=== PATIENT | female | born 1985 | race Caucasian/White ===

== ENCOUNTER 2016-09-07 15:03 | Emergency (ER) | payer SELFPAY ==
--- NOTE | ~2016-09-07 | CT4 ---
[facility] A Service of [facility] RADIOLOGY TEXT RESULTS PATIENT: MIREYA ADORNO LOCATION: CFTX : 87 UNIT #: [id number] AGE: [address]: Nery Peguero APRN SEX: F ORDER DR: [id number] [facility] [address] [place], [place] [address] [id number] E MR#: [id number] Acc #: [id number] NAME: MIREYA ADORNO : 1985 SEX: F STUDY DATE/TIME: 09/07/2016 18:42 UNIT: CFTX ROOM: STUDY DESCRIPTION: CT Abd and Pelv Wo Cont Attending Physician: Nery Peguero A.P.R.N. Referring Physician: Gilbert Bro M.D. Ordering Physician: Karl Moody M.D. Primary Care Physician: No Primary Care Physician MEDICAL IMAGING REPORT This report is preliminary unless electronic signature is present EXAM CT abdomen and pelvis without contrast. HISTORY Low abdomen pain and vaginal pain and dysuria today. TECHNIQUE This CT exam was performed with one or more of the following radiation dose reduction techniques: automatic exposure control, adjustment of mA and/or kV according to patient size, and iterative reconstruction. FINDINGS CT abdomen and pelvis was performed without contrast. CT ABDOMEN. Moderate left hydronephrosis and mild left ureteral dilatation and mild left perinephric stranding. Splenomegaly measuring 17.3 cm in length. The liver, gallbladder, right kidney, and adrenal glands are normal. No bowel dilatation. No ascites. Normal caliber abdominal aorta. Multiple subcentimeter aortocaval lymph nodes. CT PELVIS. There is a 3 mm obstructing stone at the left ureterovesical junction with [id number] left ureteral dilatation. No pelvic free fluid. The uterus and adnexa are unremarkable. Normal appendix. IMPRESSION 1. 3 mm obstructing stone at the left ureterovesical junction causing moderate left hydronephrosis and [id number]-[id number] left ureteral dilatation. 2. No acute findings in the remainder of the abdomen or pelvis. [facility] A Service of [facility] RADIOLOGY TEXT RESULTS PATIENT: MIREYA ADORNO LOCATION: [facility] #: [id number] : [birth year] UNIT #: [id number] AGE: [address]: Nery Peguero APRN SEX: F ORDER DR: 3. Splenomegaly measuring 17.3 cm in length. 4. Normal appendix. Dictated by... Yordan Pacheco M.D. THIS IS AN ELECTRONICALLY VERIFIED REPORT Yordan Pacheco M.D. at 09/07/2016 10:47 PM TERRY/staci TD: 09/07/2016 21:21 JOB #: [id number] MEDICAL IMAGING REPORT Page 1 of 1 COPY
[2016-09-07 16:36] LABS: URINE SOURCE CLEAN CATCH
[2016-09-07 16:44] LABS: URINE APPEARANCE TURBID; URINE BLOOD 3+ (NEG); URINE COLOR RED; URINE GLUCOSE NEG (NEG); URINE LEUKOCYTE ESTERASE 2+ (NEG); URINE NITRATE POS (NEG); URINE PROTEIN 1+ (NEG); URINE SPECIFIC GRAVITY 1.022 (1.003-1.035)
[2016-09-07 16:48] LABS: CULTURE INDICATED? YES; U HYALINE CASTS AUWI 0-2 /[LPF]; URBCS1 AUWI 50-100 /[HPF] (0-2); URINE BACTERIA AUWI 1+ (NEGATIVE); URINE SQUAMOUS EPITHELIAL CELL OCC /[HPF]
[2016-09-07 16:56] LABS: URINE BILIRUBIN NEG (NEG); URINE KETONE NEG (NEG)
[2016-09-07 17:40] LABS: BASOPHIL% 0.3 % (0-2.5); EOSINOPHIL# 0.1 X10e3 (0-0.7); EOSINOPHIL% 0.8 % (0.0-7.0); HEMATOCRIT 40.1 % (35.0-45.0); HEMOGLOBIN 13.7 gm/dL (12.0-16.0); LYMPHOCYTE# 1.6 X10e3 (1.0-3.5); LYMPHOCYTE% 20.3 % (17.0-45.0); MEAN CELL VOLUME 92.6 FL (83-96); MEAN CORPUSCULAR HEMOGLOBIN 31.6 PG (28-34); MEAN CORPUSCULAR HGB CONC 34.2 g/dL (30-36); MEAN PLATELET VOLUME 11.4 FL (6.5-11.5); MONOCYTE# 0.3 X10e3 (0-1.0); MONOCYTE% 4.4 % (3.0-12.0); NEUTROPHIL# 5.7 X10e3 (1.5-7.1); NEUTROPHIL% 74.2 % (40-75); PLATELET COUNT 114 X10e3 (140-420); RED BLOOD COUNT 4.33 X10e (3.90-5.30); RED CELL DISTRIBUTION WIDTH 13.7 % (11.0-15.5); WHITE BLOOD COUNT 7.7 X10e3 (4.0-10.5)
[2016-09-07 17:42] LABS: DIFF IND NO
[2016-09-07 17:54] LABS: ALBUMIN SERUM 4.6 g/dL (3.5-5.0); BILIRUBIN,TOTAL 0.6 mg/dL (0.2-2.0); BUN/CREATININE RATIO 23.33; CALCIUM SERUM 8.9 mg/dL (8.4-10.2); CREATININE SERUM 0.6 mg/dL (0.6-1.4); GLOM FILT RATE Estimated 122.3 mL/min (>60); POTASSIUM 3.7 mmol/L (3.5-5.1); PROTEIN TOTAL SERUM 7.1 g/dL (6.0-8.3)
== END 2016-09-07 20:15 | disposition home or self-care (01) ==
LOC: CFTX 15:03 → CED 15:03 → CFTX 16:50
PROVIDERS: Nurse Practitioner
DX: N13.2 Hydronephrosis with renal and ureteral calculous obstruction (principal); N39.0 Urinary tract infection, site not specified
CPT/HCPCS: 74176; 80053; 81003; 83690; 84703; 85025; 87086; 96372; 99284; J0696; J1885